=== PATIENT | male | born 1965 | race Caucasian/White ===

== ENCOUNTER 2020-11-18 15:01 | Observation (INO) | payer OTHER ==
[~2020-11-18] VITALS: Ht 188 cm; Wt 112.0 kg
[~2020-11-18 15:01] MED LIST: ASPIR 8181 MG PO; BRILINTA 90 MG90 MG PO; LIPITOR TAB 2020 MG PO; LOPRESSOR 25 MG25 MG PO; NEXIUM40 MG PO; ZESTRIL5 MG PO
[2020-11-18 15:53] LABS: HEMOGLOBIN 13.5 gm/dl (14.0-17.5); RED BLOOD COUNT 4.08 M/UL (4.20-5.50); WHITE BLOOD COUNT 4.5 K/UL (4.5-11.0)
[2020-11-18 16:12] LABS: BUN/CREATININE RATIO 11 (0-10)
[2020-11-19] MEDS ORDERED: FENOFIBRATE145 MG PO (01:51)
[2020-11-19] MEDS ORDERED: ANUSOL HC SUPP1 SUPP PR (01:52)
[2020-11-19] MEDS ORDERED: BUSPAR 10MG10 MG PO (01:52)
[2020-11-19] MEDS ORDERED: EFFEXOR XR75 MG PO (01:54)
[2020-11-19] MEDS ORDERED: NEXLIZET 180-11 EACH PO (01:54)
[2020-11-19] MEDS ORDERED: PLAVIX 75 MG TA75 MG PO (01:55)
[2020-11-19 04:29] LABS: HEMOGLOBIN 12.5 gm/dl (14.0-17.5); RED BLOOD COUNT 3.78 M/UL (4.20-5.50); WHITE BLOOD COUNT 4.4 K/UL (4.5-11.0)
[2020-11-19 04:50] LABS: BUN/CREATININE RATIO 17 (0-10)
--- NOTE | 2020-11-19 12:19 | NUR ---
PATIENT OFF THEN FLOOR FOR CARDIAC CATH
[2020-11-19] MEDS ORDERED: OMEPRAZOLE20 M1 PO (14:13)
[2020-11-19] MEDS ORDERED: FISH OIL 1,2001 EACH PO (14:22)
[2020-11-19] MEDS ORDERED: COZAAR25 MG PO (14:22)
[2020-11-19] MEDS ORDERED: MULTIVITAMINS1 EAC2 PO (14:23)
[2020-11-19] MEDS ORDERED: ATORVASTATIN CA20 MG PO (14:53)
--- NOTE | 2020-11-19 15:17 | NUR ---
PATIENT DENIES PAIN ON RIGHT GROIN, NO BLEEDING AND NO SWELLING NOTED.
--- NOTE | 2020-11-19 16:03 | NUR ---
INSTRUCTED ON MED CHANGES AND FOLLOW UP APPOINTMENTS. TAKE MEDS ORDERED . PATIENT AND VERBALIZED UNDERSTANDING., EDA LEI R.N.
--- NOTE | 2020-11-19 16:18 | NUR ---
INSTRUCTED ON IMPORTANCE OF TAKING ALL MEDS ORDERED, MEDS THAT HAVE BEEN STOPPED AND FOLLOW UP APPOINTMENTS. VERBALIZED UNDERSTANDING, EDA BLEVINS
--- NOTE | 2020-11-19 17:36 | NUR ---
PATIENT REQUEST FOR PAIN MEDICINE R/T AN HOUR TRIP GOING HOME, SPOKEN WITH DR. LEGER OF MORPINE AVAILABLE AND STATED OK TO GIVE MORPINE ORDERED PRIOR TO D/C
== END 2020-11-19 17:52 | disposition home or self-care (01) ==
LOC: ER1 15:01 → CDU 17:34 → MED SURG 4 19:51
PROVIDERS: Student in an Organized Health Care Education/Training Program; ADMIT Internal Medicine
DX: I25.110 Atherosclerotic heart disease of native coronary artery with unstable angina pectoris (principal); E78.5 Hyperlipidemia, unspecified; I10 Essential (primary) hypertension; I25.2 Old myocardial infarction; Z95.5 Presence of coronary angioplasty implant and graft; Z87.891 Personal history of nicotine dependence; Z79.82 Long term (current) use of aspirin; Z79.899 Other long term (current) drug therapy; Z20.822 Contact with and (suspected) exposure to COVID-19
CPT/HCPCS: 0240U; 36415; 71045; 80048; 80053; 80061; 82550; 82553; 83690; 83874; 83880; 84484; 85025; 85610; 85730; 93005; 96374; 96376; 99152; 99153; 99285; C1760; C1769; G0378; J1644; J2250; J2270; J3010; J7030; Q9967